=== PATIENT | male | born 1980 | race Caucasian/White ===

== ENCOUNTER 2021-06-16 09:58 | Emergency (ER) | payer BC, OTHER ==
[2021-06-16] MEDS ORDERED: Lidocaine 2% 20 ml MDV ONE (10:26)
[2021-06-16] MEDS ORDERED: Clindamycin 150 MG CAP ONE (11:09)
[2021-06-16 18:04] LABS: RBC Count-Automated (BF) 29863 /cu.mm
[2021-06-16 18:09] LABS: BF Color Red; Body Fluid Source Synovial Fluid; Clarity Cloudy/Turbid (Clear); Tube # EDTA; WBC/Nucleated-Auto (BF) Greater than 51000 uL
[2021-06-16 18:29] LABS: BF Segmented Neutrophils 96 %; Cell Count Non Hematic 1 %; Eosinophils 1 %; Lymphocytes 2 %
== END 2021-06-16 11:10 | disposition home or self-care (01) ==
LOC: BURERS 09:58
DX: M70.22 Olecranon bursitis, left elbow (principal); R55 Syncope and collapse
CPT/HCPCS: 20605; 82945; 84157; 85060; 87070; 87077; 87186; 87205; 89051; 89060; 93005

== ENCOUNTER 2021-10-04 11:54 | Emergency (ER) | payer OTHER, BC | END 2021-10-04 13:18 | disposition home or self-care (01) | LOC: BURERS 11:54 | DX: S00.03XA Contusion of scalp, initial encounter (principal); S00.431A Contusion of right ear, initial encounter; J01.90 Acute sinusitis, unspecified; Y09 Assault by unspecified means | CPT/HCPCS: 70450; 70486; 71046; 72125 ==